=== PATIENT | female | born 1980 | race Caucasian/White ===

== ENCOUNTER → 2023-10-14 | Outpatient (REF) | payer OTHER | LOC: M SFHCWAGY 13:32 | PROVIDERS: ATTEND Nurse Practitioner Family | DX: Z12.4 Encounter for screening for malignant neoplasm of cervix (principal); Z11.51 Encounter for screening for human papillomavirus (HPV) | CPT/HCPCS: 87624; G0123 ==

== ENCOUNTER → 2023-10-14 | Outpatient (CLI) | payer OTHER | LOC: M WHC 07:20 | PROVIDERS: ATTEND Nurse Practitioner Family | DX: Z12.31 Encounter for screening mammogram for malignant neoplasm of breast (principal) ==

== ENCOUNTER → 2023-10-25 | Outpatient (CLI) | payer OTHER ==
[2023-10-25 11:45] LABS: BASO % 0.4 % (0.0-1.0); EOS # 0.2 10^3/uL (0.0-0.5); EOS % 1.8 % (0.0-3.0); HEMATOCRIT 39.5 % (36.0-47.0); HEMOGLOBIN 11.8 g/dl (12.0-15.5); LYMPH # 2.3 10^3/uL (1.5-5.0); LYMPH % 22.4 % (24.0-44.0); MEAN CORPUSCULAR HEMOGLOBIN 22.2 pg (27.0-33.0); MEAN CORPUSCULAR HGB CONC 29.9 g/dl (32.0-36.5); MEAN CORPUSCULAR VOLUME 74.4 fl (80.0-96.0); MONO # 0.9 10^3/uL (0.0-0.8); MONO % 8.6 % (2.0-8.0); NEUTROPHILS # 6.9 10^3/uL (1.5-8.5); NEUTROPHILS % 66.4 % (36.0-66.0); PLATELET COUNT, AUTOMATED 405 10^3/uL (150-450); RED BLOOD COUNT 5.31 10^6/uL (4.00-5.40); WHITE BLOOD COUNT 10.4 10^3/uL (4.0-10.0)
[2023-10-25 12:08] LABS: HEMOGLOBIN A1c 5.7 % (4.0-6.0)
[2023-10-25 12:19] LABS: ALBUMIN 3.4 G/DL (3.2-5.2); ALKALINE PHOSPHATASE 83 U/L (46-116); ALT/SGPT 15 U/L (7.0-40); AST/SGOT < 8 U/L (<34); BILIRUBIN,TOTAL 0.2 MG/DL (0.3-1.2); BLOOD UREA NITROGEN 11 MG/DL (9-23); CARBON DIOXIDE LEVEL 29 MMOL/L (20-31); CHLORIDE LEVEL 108 MMOL/L (98-107); CHOLESTEROL LEVEL 191 MG/DL (<200); CHOLESTEROL RISK RATIO 3.49 (<5); CREATININE FOR GFR 0.75 MG/DL (0.55-1.30); GLOMERULAR FILTRATION RATE > 60.0 (>58); GLUCOSE, FASTING 104 MG/DL (60-100); HDL CHOLESTEROL 54.6 MG/DL (>40); IRON (FE) 16 UG/DL (50-170); LDL CHOLESTEROL 120.2 MG/DL (<100); NON-HDL-C 136.4 MG/DL; POTASSIUM SERUM 4.3 MMOL/L (3.5-5.1); SODIUM LEVEL 140 MMOL/L (136-145); THYROID STIMULATING HORMONE 7.732 uIU/ML (0.55-4.78); TOTAL PROTEIN 6.8 G/DL (5.7-8.2); TRIGLYCERIDES LEVEL 81 MG/DL (<150)
[2023-10-25 12:20] LABS: TOTAL 25(OH) VITAMIN D 32.8 NG/ML (20.0-100.0)
[2023-10-25 12:21] LABS: FREE T4 0.82 NG/DL (0.89-1.76); VITAMIN B12 LEVEL 578 PG/ML (211-911)
== END ==
LOC: M PLALAB 08:00
PROVIDERS: ATTEND Nurse Practitioner Family
DX: Z01.812 Encounter for preprocedural laboratory examination (principal); D51.9 Vitamin B12 deficiency anemia, unspecified; E55.9 Vitamin D deficiency, unspecified; E66.01 Morbid (severe) obesity due to excess calories

== ENCOUNTER → 2023-11-06 | Outpatient (CLI) | payer OTHER | LOC: M LAB 08:57 | PROVIDERS: ATTEND Nurse Practitioner Family | DX: Z01.810 Encounter for preprocedural cardiovascular examination (principal); E66.01 Morbid (severe) obesity due to excess calories; I45.10 Unspecified right bundle-branch block; I49.8 Other specified cardiac arrhythmias ==

== ENCOUNTER → 2023-11-12 | Outpatient (REF) | payer OTHER | LOC: M LAB REF 18:28 | PROVIDERS: ATTEND Nurse Practitioner Family | DX: R30.0 Dysuria (principal); B96.20 Unspecified Escherichia coli [E. coli] as the cause of diseases classified elsewhere ==

== ENCOUNTER → 2024-02-03 | Outpatient (CLI) | payer OTHER ==
[2024-02-03 18:48] LABS: THYROID STIMULATING HORMONE 1.528 uIU/ML (0.55-4.78)
[2024-02-03 18:49] LABS: FREE T4 1.1 NG/DL (0.89-1.76)
== END ==
LOC: M PLALAB 15:17
PROVIDERS: ATTEND Family Medicine
DX: E03.9 Hypothyroidism, unspecified (principal)

== ENCOUNTER → 2024-04-14 | Outpatient (CLI) | payer OTHER ==
[~2024-04-14] MED LIST: PROHANCE 279.3MG/ML 15ML VIAL As Ordered ONE; PROHANCE 279.3MG/ML 5ML VIAL As Ordered ONE
== END ==
LOC: M RAD 14:21
PROVIDERS: ATTEND Nurse Practitioner Family
DX: Z12.39 Encounter for other screening for malignant neoplasm of breast (principal); Z15.01 Genetic susceptibility to malignant neoplasm of breast
CPT/HCPCS: A9576; C8908

== ENCOUNTER → 2024-10-17 | Outpatient (CLI) | payer OTHER | LOC: M WHC 09:29 | PROVIDERS: ATTEND Nurse Practitioner Family | DX: Z12.31 Encounter for screening mammogram for malignant neoplasm of breast (principal) ==

== ENCOUNTER → 2024-11-28 | Outpatient (CLI) | payer OTHER ==
[2024-11-28 18:34] LABS: HEMATOCRIT 47.2 % (36.0-47.0); HEMOGLOBIN 15.9 g/dl (12.0-15.5); MEAN CORPUSCULAR HEMOGLOBIN 31.1 pg (27.0-33.0); MEAN CORPUSCULAR HGB CONC 33.7 g/dl (32.0-36.5); MEAN CORPUSCULAR VOLUME 92.2 fl (80.0-96.0); PLATELET COUNT, AUTOMATED 294 10^3/uL (150-450); RED BLOOD COUNT 5.12 10^6/uL (4.00-5.40)
[2024-11-28 18:54] LABS: FERRITIN 28.3 NG/ML (7.3-270.7); THYROID STIMULATING HORMONE 1.305 uIU/ML (0.55-4.78)
== END ==
LOC: M PLALAB 16:27
PROVIDERS: ATTEND Family Medicine
DX: Z12.11 Encounter for screening for malignant neoplasm of colon (principal); D50.9 Iron deficiency anemia, unspecified

== ENCOUNTER → 2024-12-12 | Outpatient (CLI) | payer OTHER | LOC: M RAD 13:12 | PROVIDERS: ATTEND Family Medicine | DX: R19.00 Intra-abdominal and pelvic swelling, mass and lump, unspecified site (principal) ==

== ENCOUNTER → 2025-08-28 | Outpatient (CLI) | payer OTHER ==
[~2025-08-28] MED LIST changes: +BIOT1CAP2 PO; +CYAN500T14 PO; +OMEP40CA4 PO; +OYSTTAB3 PO; -PROHANCE 279.3MG/ML 15ML VIAL As Ordered ONE; -PROHANCE 279.3MG/ML 5ML VIAL As Ordered ONE; +SYNT50TA PO
[2025-08-28 18:49] LABS: ALT/SGPT 19.0 U/L (7.0-40); AST/SGOT 11.0 U/L (<34); CALCIUM LEVEL 9.3 MG/DL (8.5-10.1); CARBON DIOXIDE LEVEL 27.0 MMOL/L (20-31); CHLORIDE LEVEL 106.0 MMOL/L (98-107); CHOLESTEROL LEVEL 185.0 MG/DL (<200); CHOLESTEROL RISK RATIO 4.02 (<5); CREATININE FOR GFR 0.91 MG/DL (0.55-1.30); GLOMERULAR FILTRATION RATE 79.3 (>58); LDL CHOLESTEROL 125.8 MG/DL (<100); NON-HDL-C 139.0 MG/DL; POTASSIUM SERUM 4.3 MMOL/L (3.5-5.1); SODIUM LEVEL 143.0 MMOL/L (136-145); TRIGLYCERIDES LEVEL 66.0 MG/DL (<150)
[2025-08-28 18:53] LABS: ESTIMATED AVERAGE GLUCOSE 100.0 MG/DL (60-110)
== END ==
LOC: M PLALAB 12:44
PROVIDERS: ATTEND Family Medicine
DX: E03.9 Hypothyroidism, unspecified (principal); E66.812 Obesity, class 2; Z68.30 Body mass index [BMI] 30.0-30.9, adult